=== PATIENT | female | born 1995 | race Caucasian/White ===

== ENCOUNTER 2017-09-24 02:02 | Emergency (ER) | payer OTHER ==
[~2017-09-24] VITALS: Ht 154.9 cm; Wt 55.3 kg
[~2017-09-24 02:02] MED LIST: ALBU90OI INH; ALBU90OI6 INH; AMOX25SU PO; CETI5 PO; IBUP100S; OTC COUGH MED; Prednisone20 MG PO; RXAMOX250S PO
[2017-09-24] MEDS ORDERED: PSEUDOEPHEDRINE (02:26)
[2017-09-24] MEDS ORDERED: Prednisone20 MG PO (03:24)
== END 2017-09-24 03:28 | disposition home or self-care (01) ==
LOC: ER 02:02
DX: J45.901 Unspecified asthma with (acute) exacerbation (principal); Z79.899 Other long term (current) drug therapy
CPT/HCPCS: 94640; 99283

== ENCOUNTER 2018-09-08 11:58 | Inpatient (IN) | payer OTHER ==
[~2018-09-08] VITALS: Ht 154.9 cm; Wt 61.2 kg
[~2018-09-08 11:58] MED LIST changes: +PSEUDOEPHEDRINE
[2018-09-08 13:56] LABS: BASOPHILS ABSOLUTE AUTO 0.05 K/mm3 (0.00-0.23); BASOPHILS PERCENT AUTO 0 % (0-2); EOSINOPHILS ABSOLUTE AUTO 0.13 K/mm3 (0.00-0.68); EOSINOPHILS PERCENT AUTO 1 % (0-6); Hematocrit 43.5 % (33.0-51.0); Hemoglobin 14.5 g/dL (11.5-16.0); IMMATURE GRAN ABSOLUTE AUTO 0.03 K/mm3 (0.00-0.10); IMMATURE GRAN PERCENT AUTO 0 % (0-1); LYMPHOCYTES PERCENT AUTO 24 % (21-46); MONOCYTES ABSOLUTE AUTO 1.12 K/mm3 (0.16-1.47); MONOCYTES PERCENT AUTO 9 % (4-13); Mean Corpuscular HGB 29.4 pg (26.0-34.0); Mean Corpuscular HGB Conc 33.3 g/dL (31.5-36.5); Mean Corpuscular Volume 88 fL (80-100); Mean Platelet Volume 8.5 fL (9.1-12.4); NEUTROPHILS ABSOLUTE AUTO 7.88 K/mm3 (1.96-9.15); NEUTROPHILS PERCENT AUTO 65 % (41-73); Platelet Count 287 K/mm3 (150-400); RDW Coefficient Variation 13.1 % (11.7-14.2); RDW Standard Deviation 42.5 fL (35.1-46.3); Red Blood Cell Count 4.93 M/mm3 (3.80-5.20); White Blood Cell Count 12.11 K/mm3 (4.00-11.30)
[2018-09-08] MEDS ORDERED: BUDE10.22 INH (16:29)
[2018-09-08] MEDS ORDERED: PRED10 (16:30)
[2018-09-08] MEDS ORDERED: CHLO4 PO (16:32)
[2018-09-08 17:05] LABS: Chloride (POC) 100 mmol/L (98-108); Creatinine (POC) 0.6 mg/dL (0.6-1.0); Glucose (ISTAT POC) 104 mg/dL (70-99); Hemoglobin (POC) 12.9 g/dL (12.0-16.0); Potassium (POC) 3.6 mmol/L (3.5-5.5); Sodium (POC) 139 mmol/L (135-148); Total CO2 (POC) 25 mmol/L (21-32)
[2018-09-09 05:52] LABS: BASOPHILS ABSOLUTE AUTO 0.04 K/mm3 (0.00-0.23); BASOPHILS PERCENT AUTO 0 % (0-2); EOSINOPHILS ABSOLUTE AUTO 0.01 K/mm3 (0.00-0.68); EOSINOPHILS PERCENT AUTO 0 % (0-6); Hematocrit 39.8 % (33.0-51.0); Hemoglobin 13.2 g/dL (11.5-16.0); IMMATURE GRAN ABSOLUTE AUTO 0.05 K/mm3 (0.00-0.10); IMMATURE GRAN PERCENT AUTO 0 % (0-1); LYMPHOCYTES ABSOLUTE AUTO 1.23 K/mm3 (0.84-5.20); LYMPHOCYTES PERCENT AUTO 8 % (21-46); MONOCYTES ABSOLUTE AUTO 1.17 K/mm3 (0.16-1.47); MONOCYTES PERCENT AUTO 7 % (4-13); Mean Corpuscular HGB Conc 33.2 g/dL (31.5-36.5); Mean Corpuscular Volume 88 fL (80-100); Mean Platelet Volume 8.6 fL (9.1-12.4); NEUTROPHILS ABSOLUTE AUTO 13.68 K/mm3 (1.96-9.15); NEUTROPHILS PERCENT AUTO 85 % (41-73); Platelet Count 268 K/mm3 (150-400); RDW Coefficient Variation 12.9 % (11.7-14.2); RDW Standard Deviation 41.6 fL (35.1-46.3); Red Blood Cell Count 4.55 M/mm3 (3.80-5.20); White Blood Cell Count 16.18 K/mm3 (4.00-11.30)
[2018-09-09 06:09] LABS: Anion Gap 8 mmol/L (6-16); Blood Urea Nitrogen 11 mg/dL (8-24); Bun/Creatinine Ratio 17.8 (12.0-20.0); CO2, Blood 26 mmol/L (21-32); Calcium, Blood 8.2 mg/dL (8.5-10.1); Chloride, Blood 102 mmol/L (98-108); Creatinine, Blood 0.62 mg/dL (0.40-1.00); Glomerular Filtration Rate >60 (60-); Glucose, Blood 111 mg/dL (70-99); Potassium, Blood 4.2 mmol/L (3.5-5.5); Sodium, Blood 136 mmol/L (136-145)
[2018-09-10 05:58] LABS: BASOPHILS ABSOLUTE AUTO 0.01 K/mm3 (0.00-0.23); BASOPHILS PERCENT AUTO 0 % (0-2); EOSINOPHILS PERCENT AUTO 0 % (0-6); Hematocrit 38.2 % (33.0-51.0); Hemoglobin 12.5 g/dL (11.5-16.0); IMMATURE GRAN ABSOLUTE AUTO 0.03 K/mm3 (0.00-0.10); IMMATURE GRAN PERCENT AUTO 0 % (0-1); LYMPHOCYTES ABSOLUTE AUTO 1.08 K/mm3 (0.84-5.20); LYMPHOCYTES PERCENT AUTO 11 % (21-46); MONOCYTES ABSOLUTE AUTO 0.56 K/mm3 (0.16-1.47); MONOCYTES PERCENT AUTO 6 % (4-13); Mean Corpuscular HGB 28.9 pg (26.0-34.0); Mean Corpuscular HGB Conc 32.7 g/dL (31.5-36.5); Mean Corpuscular Volume 88 fL (80-100); Mean Platelet Volume 8.8 fL (9.1-12.4); NEUTROPHILS ABSOLUTE AUTO 8.31 K/mm3 (1.96-9.15); NEUTROPHILS PERCENT AUTO 83 % (41-73); Platelet Count 288 K/mm3 (150-400); RDW Coefficient Variation 12.7 % (11.7-14.2); RDW Standard Deviation 41.5 fL (35.1-46.3); Red Blood Cell Count 4.32 M/mm3 (3.80-5.20); White Blood Cell Count 9.99 K/mm3 (4.00-11.30)
[2018-09-10 06:20] LABS: Anion Gap 10 mmol/L (6-16); Blood Urea Nitrogen 12 mg/dL (8-24); Bun/Creatinine Ratio 18.8 (12.0-20.0); CO2, Blood 25 mmol/L (21-32); Calcium, Blood 8.5 mg/dL (8.5-10.1); Chloride, Blood 104 mmol/L (98-108); Creatinine, Blood 0.64 mg/dL (0.40-1.00); Glomerular Filtration Rate >60 (60-); Glucose, Blood 125 mg/dL (70-99); Phosphorus, Blood 3.3 mg/dL (2.5-4.9); Potassium, Blood 4.1 mmol/L (3.5-5.5); Sodium, Blood 139 mmol/L (136-145)
[2018-09-10 21:20] LABS: Vancomycin, Trough 8.5 ug/mL (5.0-10.0)
[2018-09-12] MEDS ORDERED: HYDR1TAB94 PO (10:34)
[2018-09-12] MEDS ORDERED: Augmentin 875-1 EACH PO (10:36)
[2018-09-12] MEDS ORDERED: PRED10 PO (10:40)
[2018-09-12 21:30] LABS: Vancomycin, Trough 12.3 ug/mL (5.0-10.0)
== END 2018-09-13 11:15 | disposition home or self-care (01) | DRG 122 ==
LOC: ER 11:58 → SURS 17:59
PROVIDERS: Family Medicine; Internal Medicine; Physician Assistant
DX: H05.012 Cellulitis of left orbit (principal); J45.909 Unspecified asthma, uncomplicated; I95.9 Hypotension, unspecified; F17.200 Nicotine dependence, unspecified, uncomplicated; Z88.8 Allergy status to other drugs, medicaments and biological substances; Z88.6 Allergy status to analgesic agent; Z91.011 Allergy to milk products; Z79.899 Other long term (current) drug therapy
CPT/HCPCS: 36415; 70487; 80047; 80048; 80069; 80202; 82565; 85014; 85025; 87070; 87205; 94640; 94760; 96365; 96366; 96367; 96368; 96375; 96376; 99284-25; J0696; J1100; J1170; J2405; J2543; J2550; J3010; J3370; J7050; J7120; Q9967

== ENCOUNTER 2019-12-29 21:22 | Emergency (ER) | payer OTHER ==
[~2019-12-29] VITALS: Ht 157.5 cm; Wt 70.3 kg
[~2019-12-29 21:22] MED LIST changes: +Augmentin 875-1 EACH PO; +BUDE10.22 INH; +CHLO4 PO; +HYDR1TAB94 PO; +PRED10; +PRED10 PO
[2019-12-29] MEDS ORDERED: METPHE5 (22:13)
[2019-12-29] MEDS ORDERED: Bactrim Ds Tab1 EACH PO (22:23)
[2019-12-29] MEDS ORDERED: CEPH500 PO (22:23)
== END 2019-12-29 22:49 | disposition home or self-care (01) ==
LOC: ER 21:22
DX: N61.1 Abscess of the breast and nipple (principal); J45.909 Unspecified asthma, uncomplicated; Z88.6 Allergy status to analgesic agent; F17.200 Nicotine dependence, unspecified, uncomplicated; Z91.011 Allergy to milk products
CPT/HCPCS: 99283; A9270-GY

== ENCOUNTER → 2020-05-14 | Outpatient (CLI) | payer OTHER ==
[~2020-05-14] MED LIST changes: +Bactrim Ds Tab1 EACH PO; +CEPH500 PO; +METPHE5
== END ==
LOC: LAB SHORT 18:11 → LAB EV 18:11
DX: N39.0 Urinary tract infection, site not specified (principal)
CPT/HCPCS: 87086

== ENCOUNTER 2020-05-31 14:34 | Emergency (ER) | payer OTHER ==
[~2020-05-31] VITALS: Ht 152.4 cm; Wt 62.1 kg
[2020-05-31] MEDS ORDERED: METHYLPHENIDATE36 MG PO (14:40)
[2020-05-31] MEDS ORDERED: LORA1SY PO (14:40)
[2020-05-31] MEDS ORDERED: COMBIVENT RESPIM4 G1 INH (17:25)
== END 2020-05-31 17:42 | disposition home or self-care (01) ==
LOC: ER 14:34
DX: J45.901 Unspecified asthma with (acute) exacerbation (principal); F17.200 Nicotine dependence, unspecified, uncomplicated; Z79.51 Long term (current) use of inhaled steroids; Z88.6 Allergy status to analgesic agent; Z91.011 Allergy to milk products; Z91.09 Other allergy status, other than to drugs and biological substances; Z79.899 Other long term (current) drug therapy
CPT/HCPCS: 94640; 99284-25; 99406